=== PATIENT | male | born 1955 | race Caucasian/White ===

== ENCOUNTER → 2016-06-09 | Outpatient (CLI) | payer BC, OTHER ==
[~2016-06-09] MED LIST: IOPAMIDOL (ISOVUE 370) 100 ML BTL IV ONE
--- NOTE | 2016-06-09 13:03 | CT ---
CT Chest Angiogram With Contrast Enhancement and Multiplanar Reconstructions History: Recurrent atrial fibrillation. Evaluate for pulmonary vein stenoses. Technique: 1.25-mm axial multidetector helical CT imaging was performed through the chest while 100 m L [id number] were injected intravenously without complication. The images were then transferred to a n independent workstation where multiplanar, volume rendering, and three-dimensional reconstructions were performed by the interpreting physician and reviewed at multiple windows. Dose reduction techniq ues were utilized. Findings: CT Angiogram for left atrial anatomy: The pulmonary veins are evaluated. There are 2 main pulmonary v eins on the right as well as 2 on the left. Left atrial measures 8.8 x 4.6 cm axial dimension and 6 c m cephalocaudal dimension. Pulmonary veins draining right upper lobe: 16 x 17 mm diameter with branching occurring 10 mm from th e origin. The right pulmonary vein draining right lower lun x 17 mm. Bifurcation occurs 10 mm from the dheeraj gin. Pulmonary vein draining left upper lun x 22 mm with branching occurring about 20 mm from the dheeraj gin. Pulmonary vein draining left lower lung, 16 x 20 mm in diameter with branching occurring 15 mm from t he origin. There is normal enhancement of the pulmonary arterial vasculature without evidence of intraluminal th rombus. The thoracic aorta has a normal contour without aneurysm or dissection. CT Chest: There are no pulmonary nodules. Mild atherosclerotic thoracic aorta without aneurysm. Mild coronary artery calcifications noted. There are no infiltrates or effusions. There is no hilar or med iastinal lymphadenopathy. Impression: 1. Normal pulmonary vein anatomy. 2. Mild atherosclerotic aorta without aneurysm. 3. Coronary atherosclerosis. 4. No acute pulmonary disease.
== END ==
LOC: FIMAGING 07:45
PROVIDERS: ATTEND Internal Medicine Cardiovascular Disease
DX: I25.10 Atherosclerotic heart disease of native coronary artery without angina pectoris (principal); I48.91 Unspecified atrial fibrillation; I48.92 Unspecified atrial flutter
CPT/HCPCS: Q9967